=== PATIENT | female | born 1980 | race Caucasian/White ===

== ENCOUNTER 2018-02-03 13:41 | Emergency (ER) | payer MEDICAID ==
[2018-02-03 15:15] LABS: SQUAMOUS EPITHIAL 4 /hpf (0-5); URINE BACTERIA RARE (<OCC); URINE BILIRUBIN NEGATIVE (NEGATIVE); URINE BLOOD NEGATIVE (NEGATIVE); URINE CLARITY Clear (Clear); URINE COLOR Yellow (YELLOW); URINE GLUCOSE (UA) NORMAL (Normal); URINE LEUKOCYTE ESTERASE NEG Leu/uL (Negative); URINE PROTEIN 1+ mg/dL (NEGATIVE); URINE UROBILINOGEN NORMAL mg/dL (0.2-1.0)
[2018-02-03 15:24] LABS: BASO % 0.3 % (0.0-2.0); EOS # 0.1 K/uL (0.0-0.7); EOS % 0.9 % (0.0-4.0); HEMOGLOBIN 13.6 g/dL (11.0-16.0); LYMPH # 1.1 K/uL (1.0-4.3); LYMPH % 16.1 % (20.0-40.0); MEAN CORPUSCULAR HEMOGLOBIN 30.6 pg (27.0-31.0); MEAN PLATELET VOLUME 10.2 fL (7.2-11.7); MONO # 0.4 K/uL (0.0-0.8); MONO % 6.5 % (0.0-10.0); NEUT # 5.2 K/uL (1.8-7.0); NEUT % 76.2 % (50.0-75.0); RBC 4.43 Mil/uL (3.80-5.20); RED CELL DISTRIBUTION WIDTH 14.7 % (11.5-14.5); WHITE BLOOD COUNT 6.8 K/uL (4.8-10.8)
--- NOTE | 2018-02-03 16:15 | C.PDOC ---
History Of Present Illness 37 yo female w/o significant PMHx , come in for evaluation of diffuse lower abdominal pain gradually developed for past few days. Pt reports, last menstrual period 11/27/17, " but had sporadic vaginal spotting last for few days over last month". Pt sts, took test, was not sure about results. Otherwise, pt denies fever, chills, recent illness, sore throat, N/V/D, back pain, UTi sx, hematuria, denies vaginal bleeding or vaginal irritation/ discharges. Ambulate to Ed for evaluation, not in any apparent distress. Time Seen by Provider: 02/03/18 14:04 Chief Complaint (Nursing): Abdominal Pain History Per: Patient Past Medical History Reviewed: Historical Data, Nursing Documentation, Vital Signs Vital Signs: Last Vital Signs Temp 97.9 F 02/03/18 17:29 Pulse 66 02/03/18 17:29 Resp 17 02/03/18 17:29 BP 117/78 02/03/18 17:29 Pulse Ox 100 02/03/18 17:29 - Medical History PMH: No Chronic Diseases Surgical History: No Surg Hx Family History: States: No Known Family Hx - Social History Hx Tobacco Use: No Hx Alcohol Use: Yes Hx Substance Use: No - Immunization History Hx Tetanus Toxoid Vaccination: Yes Hx Influenza Vaccination: No Hx Pneumococcal Vaccination: No Review Of Systems Except As Marked, All Systems Reviewed And Found Negative. Constitutional: Negative for: Fever, Chills ENT: Negative for: Throat Pain Cardiovascular: Negative for: Chest Pain, Palpitations Respiratory: Negative for: Cough, Shortness of Breath, Wheezing Gastrointestinal: Positive for: Abdominal Pain. Negative for: Vomiting, Diarrhea, Melena Genitourinary: Negative for: Dysuria, Frequency, Incontinence, Vaginal Discharge , Vaginal Bleeding Musculoskeletal: Negative for: Neck Pain, Back Pain Skin: Negative for: Rash Neurological: Negative for: Headache, Dizziness Physical Exam - Physical Exam Appears: Well, Non-toxic, No Acute Distress Skin: Normal Color, Warm, Dry, No Rash Head: Normacephalic Eye(s): bilateral: PERRL Nose: No Flaring, No Discharge Oral Mucosa: Moist, No Drooling Tongue: Normal Appearing Lips: Normal Appearing Throat: No Erythema, No Drooling Neck: Trachea Midline, Supple Cardiovascular: Rhythm Regular, No Murmur, No JVD Respiratory: No Decreased Breath Sounds, No Accessory Muscle Use, No Stridor, No Wheezing Gastrointestinal/Abdominal: Soft, No Tenderness, No Distention, No Guarding, No Rebound Back: No CVA Tenderness Extremity: Normal ROM, No Pedal Edema, No Swelling Neurological/Psych: Oriented x3, Normal Speech ED Course And Treatment - Laboratory Results Result Diagrams: 02/03/18 15:20 Lab Interpretation: Normal Urine POC: Positive O2 Sat by Pulse Oximetry: 98 Pulse Ox Interpretation: Normal - CT Scan/US Ob US Other Rad Studies (CT/US): Radiology Report Reviewed CT/US Interpretation: (+) single viable IUP, GA 11w5d, HR 156/min. Progress Note: Onre-eval, pt is afebrile, hemodyamicaly stable. Non-toxic. ENT : no acute findings. Neck: SUpple. Lungs: CTA B/L, BS equal B/L. Abd: benign , (-) guaridng, (-) rebound, (-) localized tenderness. back: (-) CVA tenderness. Blood work review, no acute abnoramlities. Blood type: B positive. US review (+) SIngle live IUP, 11 w, (+) FHR, no acute abnormalities. Beta quant 73,000 c/w US findings. Pt has clinical finidngs c/ w abd. pain, , r/o theratened . Pt advised to F/U with OB in 2-3 days for re-eval, repeat beta, or return to ED. Disposition Counseled Patient/Family Regarding: Studies Performed, Diagnosis, Need For Followup, Rx Given - [facility]position [facility] Disposition: HOME/ ROUTINE Disposition Time: 16:18 Condition: STABLE Additional Instructions: "Pelvic rest" for 1-2 weeks, no sexually activity for 1 week Take vitamins Follow up with OB in 2 days for re-evaluation to repeat beta quant, or return to ED. return to ED at any time if any worsening or new changes. Prescriptions: Multivit/Folic Acid/I [ Plus] 1 tab PO DAILY #30 tab Instructions: Threatened Miscarriage Forms: [employer] ([employer]) - Clinical Impression Clinical Impression: Threatened
--- NOTE | 2018-02-03 17:03 | US ---
Date of service: 02/03/2018 PROCEDURE: OB Pelvic Ultrasound HISTORY: lower abd. pain COMPARISON: None available. FINDINGS: UTERUS: Single Live intrauterine gestation. Gestational sac diameter measures 5.65 cm equivalent to 11 weeks and 5 days of gestational age. Yolk sac is visualized. CRL measures 4.08 cm equivalent to 11 weeks and 0 day of gestational age age (Ultrasound estimated): 11 weeks and 3 days Date of delivery (Ultrasound estimated) : 08/22/2018 Heart rate: 156 bpm. Lesly-gestational hemorrhage: None. Uterus measures 12.4 x 7.0 x 9.0 cm. No mass CERVIX: Long and closed. No cervical abnormality seen. RIGHT OVARY: Not visualized. LEFT OVARY: Not visualized. FREE FLUID: There is a small amount of free fluid in the cul de sac of uncertain clinical significance and etiology. OTHER FINDINGS: None. IMPRESSION: Single live intrauterine gestational sac with mean gestational age of 11 weeks and 3 days. The estimated date of delivery by ultrasound is 08/22/2018.
[2018-02-03 17:29] VITALS: BP 117/78; PULSE 66; RESP 17; TEMP 97.9
[2018-02-03 18:19] VITALS: O2SAT 98
== END 2018-02-03 17:29 | disposition home or self-care (01) ==
LOC: C.ER 13:41
DX: O20.0 Threatened abortion (principal); Z3A.11 11 weeks gestation of pregnancy